=== PATIENT | female | born 1970 | race American Indian/Alaskan Native ===

== ENCOUNTER 2019-02-04 11:43 | Outpatient (CLI) | payer BC ==
[2019-02-04 12:55] LABS: Hematocrit 33.6 % (30.3-42.9); Hemoglobin 11.2 gm/dl (10.1-14.3); Mean Corpuscular HGB Conc 33 % (30-34); Mean Corpuscular Volume 86 fl (79-97); Platelet Count 177 K/mm3 (140-440); Red Blood Count 3.88 M/mm3 (3.65-5.03); Red Cell Distribution Width 16.4 % (13.2-15.2)
[2019-02-04 13:20] LABS: Erythrocyte Sedimentation Rate 21 mm/Hr (0-20)
[2019-02-04 13:27] LABS: Alanine Aminotransferase 9 units/L (7-56); Albumin 4.1 g/dL (3.9-5); BUN/Creatinine Ratio 16; Blood Urea Nitrogen 13 mg/dL (7-17); Calcium 8.9 mg/dL (8.4-10.2); LDL Cholesterol,Direct 125 mg/dL (50-130)
[2019-02-04 13:28] LABS: Chol/HDL Ratio 2.37 %; HDL Cholesterol 94 mg/dL (40-59); Hemolysis Index 5
[2019-02-04 13:30] LABS: Free T4 (Free Thyroxine) 0.81 ng/dL (0.76-1.46)
[2019-02-07 07:43] LABS: Vitamin D, 25-OH, D2 8 ng/mL
== END 2019-02-04 11:44 | disposition home or self-care (01) ==
LOC: LAB 11:43 → EDBD 11:43 → LAB 11:44
PROVIDERS: ATTEND Internal Medicine
DX: Z00.00 Encounter for general adult medical examination without abnormal findings (principal); Z13.21 Encounter for screening for nutritional disorder; Z13.220 Encounter for screening for lipoid disorders; Z13.1 Encounter for screening for diabetes mellitus; E03.9 Hypothyroidism, unspecified; M05.9 Rheumatoid arthritis with rheumatoid factor, unspecified
CPT/HCPCS: 36415; 80053; 80061; 82306; 82607; 83036; 84439; 84443; 85027; 85652; 86140; 86200; 86618

== ENCOUNTER 2019-02-28 07:11 | Outpatient (CLI) | payer BC ==
--- NOTE | 2019-02-28 11:01 | Mammography Report ---
BILATERAL DIGITAL AUGMENTED SCREENING MAMMOGRAM with CAD: 02/28/19 07:11:00 CLINICAL: Routine screening. COMPARISON:None. FINDINGS: Screening views with and without implant displacement demonstrate mostly fatty breasts with a few bilateral scattered fibroglandular densities. No mass, architectural distortion or suspicious calcifications. Intact subpectoral implants. IMPRESSION: No mammographic evidence of malignancy. BI-RADS CATEGORY: 2 -- Benign RECOMMENDATION: Routine mammographic screening in one year. COMMENT: 1. Dense breast tissue, i.e., adenosis, fibrocystic changes, etc., may obscure an underlying neoplasm. 2. Approximately 10% of cancers are not detected with mammography. 3. A negative mammography report should not delay biopsy if a clinically suspicious mass is present. COMMENT: Patient follow-up letters are generated via our [employer] application.
== END 2019-02-28 07:12 | disposition home or self-care (01) ==
LOC: MAMMO 07:11
PROVIDERS: ATTEND Internal Medicine
DX: Z12.31 Encounter for screening mammogram for malignant neoplasm of breast (principal)
CPT/HCPCS: 77067